=== PATIENT | male | born 1960 | race Caucasian/White ===

== ENCOUNTER 2021-02-17 14:22 | Outpatient (CLI) | payer OTHER ==
[~2021-02-17] VITALS: Ht 182.9 cm; Wt 84.0 kg
[2021-02-17 14:23] VITALS: BP 158/93; PULSE 72; TEMP 98
[2021-02-17 14:30] VITALS: BP 159/92; PULSE 70
[2021-02-17 14:45] VITALS: BP 155/89; PULSE 76
[2021-02-17 15:00] VITALS: BP 152/92; PULSE 72
[2021-02-17 15:30] VITALS: BP 147/87; PULSE 66
== END 2021-02-17 16:01 ==
LOC: EUO 14:22
DX: U07.1 COVID-19 (principal); E66.9 Obesity, unspecified; Z68.25 Body mass index [BMI] 25.0-25.9, adult
CPT/HCPCS: Q0244